=== PATIENT | female | born 1970 | race Caucasian/White ===

== ENCOUNTER 2020-07-19 12:08 | Emergency (ER) | payer MEDICAID, SELFPAY ==
[~2020-07-19] VITALS: Ht 154.9 cm; Wt 63.5 kg
[~2020-07-19 12:08] MED LIST: ENTE1TAB
[2020-07-19 12:19] VITALS: BP 106/72
[2020-07-19] MEDS ORDERED: ONDANSETRON 4 MG/2 ML VIAL IVP ONE (12:45)
[2020-07-19] MEDS ORDERED: LACTATED RINGERS 1,000 ML IV ONE (12:45)
[2020-07-19] MEDS ORDERED: ALUMINUM HYD/MAG/SIMETHICONE 30 ML UDC PO ONE (12:50)
[2020-07-19 13:55] VITALS: BP 106/72
== END 2020-07-19 14:07 | disposition home or self-care (01) ==
LOC: MED 12:08
DX: K21.9 Gastro-esophageal reflux disease without esophagitis (principal); E86.0 Dehydration; Z79.899 Other long term (current) drug therapy; Z86.19 Personal history of other infectious and parasitic diseases
CPT/HCPCS: 96361; 96374; 99283; J2405; J7120